=== PATIENT | male | born 1945 | race Caucasian/White ===

== ENCOUNTER 2016-12-28 05:17 | Day surgery (SDC) | payer OTHER, MEDICARE ==
[~2016-12-28] VITALS: Ht 177.8 cm; Wt 113.4 kg
--- NOTE | ~2016-12-28 | O ---
[facility] [place] [address] OPERATIVE REPORT Name: RONIT PAIGE JR Room #: 150-8 [facility] M..#: [id number] Admission: 12/28/16 Attend Phys: Edgar Randall MD Discharge: Date of : 45 Report #: [id number] THIS REPORT FOR: //name// CC: Quintin Hook DATE OF SERVICE: 12/28/2016 [employer]CHOOL GUARD: None. PREOPERATIVE DIAGNOSIS: Unilateral left upper lid ptosis. POSTOPERATIVE DIAGNOSIS: Unilateral left upper lid ptosis. OPERATION PERFORMED: Unilateral left upper lid ptosis repair. ANESTHESIA: Local anesthesia with IV sedation. COMPLICATIONS: None. INDICATIONS FOR SURGERY: This patient has left upper lid ptosis with superior visual field loss. Visual field testing demonstrates dense superior visual defects. Retesting with the upper lid elevated shows an improvement in visual field loss of over 30% and in excess of 12 degrees. The current procedure is undertaken in order to improve the patient's visual function. Informed consent was obtained to include but not limited to the potential risks for bleeding, scarring, infection, loss of vision, failure to improve the problem, need for further surgery and need for adjustment of lid height. DESCRIPTION OF PROCEDURE: The patient was taken to the operating room, where a left upper lid crease was drawn with a skin marking pen. The incision was then made with Sarah scissors and dissected down to the orbital septum. Hemostasis was achieved with a monopolar cautery as it was throughout the case. The orbital septum was then entered and the preaponeurotic fat identified. The levator aponeurosis was then disinserted from the anterior surface of the tarsal plate and dissected free in the avascular Morales's muscle plane. The aponeurosis was then advanced onto the anterior surface of the tarsal plate and reattached with mattress double-arm 6-0 Novafil sutures, adjusting for height and contour. The redundant aponeurosis was then amputated. The upper lid crease was then reformed with interrupted 6-0 chromic sutures. The skin was closed with interrupted 6-0 plain gut suture. The wound was then cleaned and dressed with ophthalmic antibiotic ointment. [facility] [address] [place] [address] OPERATIVE REPORT Name: RONIT PAIGE Room #: 150-8 [facility]..#: [id number] Admission: 12/28/16 Attend Phys: Edgar Randall MD Discharge: Date of : 45 Report #: [id number] The patient was then transported to the recovery area, having tolerated the procedure well with no anesthesia or operative complications being noted. By: [id number] Edgar Randall MD /nt
[~2016-12-28 05:17] MED LIST: ASPIR 8181 MG PO; CITRUCEL500 MG PO; CO Q-10100 MG PO; COREG6.25 MG PO; DIOVAN 80 MG TA80 M1 PO; FLOMAX0.4 MG PO; MAGOX 400400 MG PO; NITROSTAT0.4 M1 SUBLING; OCUVITE TABLET1 EAC1 PO; PRAVACHOL40 M1 PO; RED YEAST RICE600 MG PO; VITAMIN D-32000 UNIT PO; ZETIA10 MG PO
[2016-12-28 12:48] VITALS: BP 155/77
== END 2016-12-28 15:00 | disposition home or self-care (01) ==
LOC: OR 05:17 → TBA 05:17 → OR 08:51
DX: H02.402 Unspecified ptosis of left eyelid (principal); H54.62 Unqualified visual loss, left eye, normal vision right eye; I10 Essential (primary) hypertension; E78.5 Hyperlipidemia, unspecified; Z95.1 Presence of aortocoronary bypass graft; Z98.890 Other specified postprocedural states
CPT/HCPCS: 50010; 50101; 50386; 50398; 51636; 56528; 56531; 62110; 62850; 70005